=== PATIENT | male | born 1975 | race Caucasian/White ===

== ENCOUNTER → 2017-10-05 14:40 | Outpatient (CLI) | payer SELFPAY | PROVIDERS: PCP Nurse Practitioner Family; Visit Provider Nurse Practitioner Family | DX: Z02.4 Encounter for examination for driving license (principal) ==

== ENCOUNTER → 2017-12-20 15:31 | Outpatient (CLI) | payer BC, SELFPAY ==
--- NOTE | 2017-12-20 15:40 | XR_ITS ---
EXAM: XR thoracic spine 3V HISTORY: ITS.REASON: CAREN THORACIC BACK PAIN COMPARISON: None FINDINGS: Normal alignment. No fracture or dislocation. No lytic or blastic change. There is minimal endplate osteophytes noted at T11 and T12. IMPRESSION: Minimal lower thoracic spondylosis, no acute finding
== END ==
PROVIDERS: PCP Family Medicine; Visit Provider Family Medicine
DX: M54.6 Pain in thoracic spine (principal)
CPT/HCPCS: 72072

== ENCOUNTER → 2020-04-12 17:50 | Outpatient (CLI) | payer BC, SELFPAY ==
[2020-04-14 15:15] LABS: Covid-19 Nasal PCR Sendout Lex NOT DETECTED
== END ==
PROVIDERS: PCP Family Medicine; Visit Provider Family Medicine
DX: Z03.818 Encounter for observation for suspected exposure to other biological agents ruled out (principal)
CPT/HCPCS: U0004

== ENCOUNTER → 2020-04-21 10:52 | Outpatient (CLI) | payer BC, SELFPAY ==
[2020-04-22 13:38] LABS: Covid-19 Nasal PCR Sendout Lex NOT DETECTED
== END ==
PROVIDERS: PCP Family Medicine; Visit Provider Family Medicine
DX: Z03.818 Encounter for observation for suspected exposure to other biological agents ruled out (principal)
CPT/HCPCS: U0004

== ENCOUNTER → 2020-05-04 11:46 | Outpatient (CLI) | payer BC, SELFPAY | PROVIDERS: PCP Family Medicine; Visit Provider Family Medicine | DX: Z03.818 Encounter for observation for suspected exposure to other biological agents ruled out (principal) | CPT/HCPCS: U0003 ==

== ENCOUNTER → 2020-06-03 17:41 | Outpatient (CLI) | payer BC, SELFPAY ==
[2020-06-03 18:56] LABS: Uric Acid 5.2 mg/dl (3.5-8.5)
== END ==
PROVIDERS: Visit Provider Physician Assistant
DX: M10.9 Gout, unspecified (principal)
CPT/HCPCS: 36415; 84550

== ENCOUNTER → 2020-06-14 09:12 | Outpatient (CLI) | payer BC, SELFPAY ==
--- NOTE | 2020-06-14 09:19 | XR_ITS ---
PROCEDURE: XR ELBOW LT MIN 3V CLINICAL INDICATION: LT elbow pain COMPARISON: No exams were available for comparison FINDINGS: No fracture or dislocation. No lytic or blastic change. There is normal mineralization. The joint spaces are well-preserved. No significant degenerative/arthritic changes. No erosive changes evident. Other findings:There is prominent soft tissue swelling along the olecranon region of elbow IMPRESSION: Olecranon bursitis otherwise negative Dictated by: Cahno Penn MD 06/14/2020 13:20 Chano Penn MD in [place] 06/14/2020 13:20
[2020-06-14 11:53] VITALS: BMI 22.8
[2020-06-14 11:54] LABS: Color,Urine Yellow (Yellow)
[2020-06-14 11:55] LABS: Apearance,Urine Clear (Clear); Bilirubin,Urine Negative (Negative); Blood, Urine Negative (Negative); Glucose,Urine (UA) Negative (Negative); Ketones,Urine Negative (Negative); PH,Urine 7.5 (5.0-8.5); Protein,Urine Negative (Negative); UTC Leukocyte Esterase,Urine Negative (Negative); UTC Nitrate,Urine Negative (Negative); Urobilinogen,Urine 0.2 EU/dl (0.2)
== END | disposition home or self-care (01) ==
PROVIDERS: Nurse Practitioner Family; PCP Family Medicine; Visit Provider Orthopaedic Surgery
DX: M25.522 Pain in left elbow (principal)
CPT/HCPCS: 73080; 81003

== ENCOUNTER → 2020-06-21 07:16 | Outpatient (CLI) | payer BC, SELFPAY ==
[2020-06-21 07:19] LABS: MANUAL DIFFERENTIAL MANUAL DIFFERENTIAL (MANUAL DIFF)
[2020-06-21 09:29] LABS: Chloride 103 mmol/L (98-107); Potassium 4.7 mmoL/L (3.5-5.1); Sodium 140 mmol/L (136-145)
[2020-06-21 09:32] LABS: Alanine Aminotransferase 14 U/L (12-78); Albumin Level 4.4 g/dl (3.5-5.0); Albumin/Globulin Ratio 1.7 (1.1-1.8); Alkaline Phosphatase 88 U/L (38-126); Anion Gap 11.7 mEq/L (5-15); Aspartate Amino Transferase 20 U/L (17-59); Bilirubin,Total 0.5 mg/dl (0.2-1.3); Blood Urea Nitrogen 17 mg/dl (9-20); Carbon Dioxide 30 mmol/L (22.0-30.0); Estimated Glomerular Filt Rate 66 ml/min (>60); GFR (African American) 80 ML/MIN (>60); Globulin 2.6 g/dL (1.3-3.2)
[2020-06-21 09:33] LABS: Calcium 9.9 mg/dl (8.4-10.2); Glucose 101 mg/dl (74-100)
[2020-06-21 10:32] LABS: Coronavirus 19 IgG Antibody Negative (Negative); Coronavirus 19 IgM Antibody Negative (Negative)
[2020-06-21 11:09] LABS: Basophils # 0.1 K/mm3 (0-0.2); Basophils % 0.9 % (0.1-2.0); Eosinophils # 0.3 K/mm3 (0.0-0.4); Eosinophils % 3.6 % (0.1-12.0); Hematocrit 51.3 % (42.0-52.0); Hemoglobin 17.3 g/dL (14.1-18.0); Lymphocytes # 1.5 K/mm3 (0.7-4.5); Lymphocytes % 19.3 % (10-50); Mean Corpuscular HGB Conc 33.8 g/dL (31.8-35.4); Mean Corpuscular Hemoglobin 31.9 pg (27.0-31.2); Mean Corpuscular Volume 94.5 fl (80-94); Mean Platelet Volume 9.3 fl (7.4-10.4); Monocytes # 0.5 K/mm3 (0.1-1.0); Monocytes % 6.8 % (1.7-9.3); Neutrophils # 5.4 K/mm3 (1.8-7.8); Neutrophils % 69.3 % (37.0-80.0); Platelet Count 179 K/mm3 (142-424); Red Blood Count 5.43 M/mm3 (4.60-6.20); Red Cell Distribution Width 12.5 % (11.5-17.5); White Blood Count 7.7 K/mm3 (4.8-10.8)
[2020-06-21 11:55] LABS: Eosinophils % 4 % (0-3); Lymphocytes % 12 % (10-50); Monocytes % 7 % (2-9); Neutrophils % 77 % (42-76); Total Cells Counted 100
[2020-06-21 11:56] LABS: Platelet Estimate Normal; RBC Morphology Normal
== END ==
PROVIDERS: Visit Provider Orthopaedic Surgery
DX: Z01.89 Encounter for other specified special examinations (principal); M70.22 Olecranon bursitis, left elbow
CPT/HCPCS: 36415; 80053; 85007; 85014; 85018; 85048; 85049; 86328

== ENCOUNTER 2020-06-22 07:17 | Day surgery (SDC) | payer BC, SELFPAY ==
[2020-06-18 13:05] VITALS: BMI 25.0
[2020-06-22] VITALS (11 sets, daily range): BP systolic 110–124; BP diastolic 59–84; PULSE 55–87; RESP 16–20; TEMP 36.2–36.8; O2SAT 97–100
--- NOTE | 2020-06-22 09:56 | HMH.ANESCL ---
[facility] Anesthesia Checklist - Patient Identification Patient Identification: Arm Band, Verbal (Name & ) - Structural Data Admitted From: Home Planned Operative Procedure/s: Left Olecranon bursa excision Consent for Planned Operative Procedure(s) Verified: Yes Verified Documents: Surgical Consent, History and Physical - NPO Status Verified Time NPO: 00:00 - Chart Verification Results Verified: CBC, BMP, UA - Additional verifications Anesthesia Reactions: No Hx Blood Transfusions: No Blood Transfusion Reaction: No - Airway Assessment C-Spine Mobility Assessed: Yes (MP 2, TMD 3, full neck ROM) TMJ Mobility Assessed: Yes Dentition: Poor Dentition (Missing teeth) - Neurological Assessment Level of Consciousness: Awake, Alert, Appropriate, Follows Commands Hx Seizures: No Numbness or tingling in extremities: No - Anesthesia Plan Anesthesia Risk discussed: Yes Anesthesia Plan: Verified ASA Class: II Anesthesia Type: General (LMA) [facility] History I have reviewed the patient's past medical history: Yes Medical History: Denies:: Cancer, Diabetes Mellitus Type 1, Diabetes Mellitus Type 2, MRSA, Seizures *Have you ever received a pneumonia vaccine?: No *Have you received a flu vaccine this season?: No Other Medical History: Denies: Blood Transfusion Reaction Comment:: Gout Anesthesia experience/problems:: none Other Surgeries: Yes: Appendectomy Amputation: No Fractures: No - *Social History Last grade of school completed: Some college Smoking Status: Current every day smoker Tobacco Type: cigarettes # Packs/Day (cigarettes): 1 Alcohol Intake: never Substance Use Type: denies use *Occupational Status:: employed *Travel in the last 8 weeks: None Family Hx:: Other (NA)
--- NOTE | 2020-06-22 10:10 | P.PN_ITS ---
[facility] Anesthesia Record Part I Intake, IV Amount: 600 Estimated blood loss (mL): 5 Urine output (mL): 0 (NM) Blood Products used (#): none Blood Pressure: 115/78 SaO2: 97 Pulse Rate: 71 Respiratory Rate: 16 Temperature: 97.2 F Patient is:: Awake, Drowsy, Stable Stable to PACU at:: 10:18
--- NOTE | 2020-06-22 10:25 | HMH.OPNOTE ---
Date of procedure: 06/22/20 Pre-op Diagnosis:: chronic L olecranon bursitis Post-op Diagnosis:: chronic L olecranon bursitis Procedure performed:: excision of L olecranon bursa Surgeon:: Edwige Westbrook MD Boring And Filling Machine Operator(s):: Tram Mary CENTRAL OFFICE TECHNICIAN:: Jaron Tristan Anesthesia: GETA, local Estimated blood loss (mL): 5 Clinical Note:: 44-year-old [id number] male with complaints of left elbow swelling and pain. He noticed a swelling over the posterior aspect of the left elbow in January 2020. He denies any previous trauma to this region and cannot recall either bumping the elbow or having increased friction over this area. There was no erythema or warmth at that time. It has subsequently been aspirated and injected with steroids 3 times by his primary care provider. At one point they placed him on allopurinol under suspicion of gout. On 06/03/2020 his uric acid level was found to be 5.2, which is within normal limits. He denies drainage of any purulent material from this region. It is starting to become tender and troublesome, as he frequently bumps it while at work. He would like to have it removed if possible. He has tried icing the elbow as well as wearing a compressive sleeve. He takes meloxicam 15 mg p.o. daily. He denies any fevers or chills, no respiratory symptoms or recent exposure to sick individuals. I do not believe that the bursitis appears to be septic at this time, but cannot rule out indolent infection possibly precipitated by multiple aspirations and injections with steroid. I typically recommend ice, compression and NSAIDs for this condition and do not recommend routine aspiration or injection with steroids. He has tried all of the above and has had recurrent discomfort and swelling in this region for nearly 5 months. It is troublesome to him and he would like to have it excised. I discussed risks of surgical excision of left olecranon bursitis with the patient, including the risk of bleeding, infection including septic arthritis of the elbow, wound healing complications, persistent swelling and/or discomfort in this region, neurovascular damage, and need for further surgery in the future. The patient vocalized understanding and provided informed consent for the procedure. Operative findings:: L olecranon bursitis; thickened bursal tissue filled with ~5cc blood-tinged fluid, no purulence seen Operative note:: The patient was identified in preoperative holding and the left arm signed by myself. Consent was verified with the patient and all questions answered. He was then seen by anesthesia and the decision made to perform general anesthesia without a block. The patient was then taken to the OR and transferred to the operative table. 2 g Ancef was infused intravenously and general anesthesia induced. After the patient was asleep a non-sterile tourniquet was placed on the upper left arm and the remainder of the arm was prepped and draped in the usual sterile fashion. Timeout was performed, identifying the correct patient, correct procedure, and correct site. The procedure was begun by placing the patient's arm over his chest, with the arm adducted and elbow flexed, exposing the posterior aspect of the elbow. A marking pen was used to draw an incision over the posterior aspect of the elbow, longitudinal and centered over the central aspect of the olecranon bursa; it was approximately 4cm long. The left arm was exsanguinated with Esmarch and the tourniquet inflated to 250 mmHg. Using a 15 blade, the skin was incised along the drawn line of incision, incising the skin only. Tenotomy scissors were used to bluntly spread subcutaneous tissue overlying the olecranon bursa. The scissors punctured the bursal sac, releasing ~5cc of blood-tinged fluid; no purulence or sign of infection noted. The bursal tissue was thickened but not obviously clinically infected. Using blunt dissection, the bursa was dissected away from the surrounding tissue and excised
--- NOTE | 2020-06-22 19:29 | HMH.ANESII ---
[facility] Anesthesia Record Part II Discharge Time: 10:38 Destination: Surgical Day Care (OP Surgery) PACU nurse assessment reviewed?: Yes Patient Condition:: Good Anesthesia Complications:: None Swallowing reflex intact?: Yes Cyanosis?: No Blood Pressure: 124/75 Pulse Rate: 57 Temperature: 97.2 F Mental Status: Alert & Oriented Pain level:: 0 Nausea and/or vomitting:: None Intake, IV Amount: 0 (Normovolemic)
== END 2020-06-22 11:25 | disposition home or self-care (01) ==
PROVIDERS: PCP Family Medicine; Visit Provider Orthopaedic Surgery
PROC: (CPT 24105; principal; 2020-06-22 09:00)
DX: M70.22 Olecranon bursitis, left elbow (principal)
CPT/HCPCS: 24105; 87070; 87205; 96374; J2405

== ENCOUNTER → 2020-12-25 09:00 | Outpatient (CLI) | payer BC, SELFPAY ==
[2020-12-25 12:00] LABS: Erythrocyte Sedimentation Rate 9 mm/hr (0-15)
== END ==
PROVIDERS: Visit Provider Family Medicine
DX: M25.50 Pain in unspecified joint (principal)
CPT/HCPCS: 36415; 85651

== ENCOUNTER → 2021-03-04 09:21 | Outpatient (CLI) | payer BC, SELFPAY ==
--- NOTE | 2021-03-04 09:24 | XR_ITS ---
PROCEDURE: XR WRIST LT MIN 3V CLINICAL INDICATION: BL Carpal tunnel syndrome COMPARISON: No exams were available for comparison FINDINGS: No fracture or dislocation. No lytic or blastic change. There is normal mineralization. The joint spaces are well-preserved. No significant degenerative/arthritic changes. No erosive changes evident. Other findings:None. IMPRESSION: No acute findings. Dictated by: Chano Penn MD 03/04/2021 11:04 Chano Penn MD in [place] 03/04/2021 11:04
--- NOTE | 2021-03-04 09:24 | XR_ITS ---
PROCEDURE: XR WRIST RT MIN 3V CLINICAL INDICATION: BL carpal tunnel syndrome COMPARISON: No exams were available for comparison FINDINGS: No fracture or dislocation. No lytic or blastic change. There is normal mineralization. The joint spaces are well-preserved. No significant degenerative/arthritic changes. No erosive changes evident. Other findings:None. IMPRESSION: No acute findings. Dictated by: Chano Penn MD 03/04/2021 11:04 Chano Penn MD in [place] 03/04/2021 11:04
== END ==
LOC: RAD 09:22
PROVIDERS: PCP Family Medicine; Visit Provider Orthopaedic Surgery
DX: G56.00 Carpal tunnel syndrome, unspecified upper limb (principal)
CPT/HCPCS: 73110

== ENCOUNTER 2021-03-04 11:51 | Outpatient (RCR) | payer BC, SELFPAY | END 2021-03-04 12:20 | disposition home or self-care (01) | LOC: OT 11:51 | PROVIDERS: Visit Provider Orthopaedic Surgery | DX: G56.03 Carpal tunnel syndrome, bilateral upper limbs (principal) | CPT/HCPCS: 97763 ==

== ENCOUNTER → 2021-03-22 11:01 | Outpatient (CLI) | payer BC, SELFPAY ==
[2021-03-22 11:24] LABS: Basophils # 0.1 K/mm3 (0-0.2); Basophils % 0.5 % (0.1-2.0); Eosinophils # 0.2 K/mm3 (0.0-0.4); Hematocrit 44.7 % (42.0-52.0); Hemoglobin 15.8 g/dL (14.1-18.0); Lymphocytes # 1.9 K/mm3 (0.7-4.5); Lymphocytes % 18.7 % (10-50); Mean Corpuscular HGB Conc 35.2 g/dL (31.8-35.4); Mean Corpuscular Hemoglobin 31.6 pg (27.0-31.2); Mean Corpuscular Volume 89.6 fl (80-94); Mean Platelet Volume 8.9 fl (7.4-10.4); Monocytes # 0.6 K/mm3 (0.1-1.0); Monocytes % 5.9 % (1.7-9.3); Neutrophils # 7.3 K/mm3 (1.8-7.8); Neutrophils % 72.9 % (37.0-80.0); Platelet Count 202 K/mm3 (142-424); Red Blood Count 4.99 M/mm3 (4.60-6.20); Red Cell Distribution Width 13.6 % (11.5-17.5)
[2021-03-22 11:39] LABS: Chloride 106 mmol/L (98-107)
[2021-03-22 11:40] LABS: Potassium 4.1 mmoL/L (3.5-5.1); Sodium 140 mmol/L (136-145)
[2021-03-22 11:42] LABS: Alanine Aminotransferase 15 U/L (12-78); Alkaline Phosphatase 119 U/L (38-126); Anion Gap 12.1 mEq/L (5-15); Aspartate Amino Transferase 28 U/L (17-59); Bilirubin,Total 0.9 mg/dl (0.2-1.3); Blood Urea Nitrogen 18 mg/dl (9-20); Carbon Dioxide 26 mmol/L (22.0-30.0); Estimated Glomerular Filt Rate 73 ml/min (>60); GFR (African American) 88 ML/MIN (>60)
[2021-03-22 11:43] LABS: Albumin Level 4.6 g/dl (3.5-5.0); Albumin/Globulin Ratio 1.6 (1.1-1.8); Calcium 9.3 mg/dl (8.4-10.2); Globulin 2.8 g/dL (1.3-3.2); Glucose 96 mg/dl (74-100); Total Protein,Serum 7.4 g/dl (6.3-8.2)
== END ==
PROVIDERS: Visit Provider Orthopaedic Surgery
DX: Z11.52 Encounter for screening for COVID-19; G56.02 Carpal tunnel syndrome, left upper limb; Z72.0 Tobacco use; Z87.39 Personal history of other diseases of the musculoskeletal system and connective tissue; Z01.812 Encounter for preprocedural laboratory examination
CPT/HCPCS: 80053; 85025; U0003

== ENCOUNTER 2021-03-24 10:08 | Day surgery (SDC) | payer BC, SELFPAY ==
[2021-03-17 14:06] VITALS: BMI 25.0
[2021-03-24] VITALS (9 sets, daily range): BP systolic 103–127; BP diastolic 62–83; PULSE 60–72; RESP 12–18; TEMP 36.3–42.7; O2SAT 97–100
--- NOTE | 2021-03-24 11:12 | HMH.ANESCL ---
[facility] Anesthesia Checklist - Patient Identification Patient Identification: Arm Band - Structural Data Admitted From: Home Planned Operative Procedure/s: Left Carpal Tunnel Release Consent for Planned Operative Procedure(s) Verified: Yes Verified Documents: Surgical Consent, History and Physical - NPO Status Verified Time NPO: 00:00 - Additional verifications Anesthesia Reactions: No Hx Blood Transfusions: No Blood Transfusion Reaction: No - Airway Assessment C-Spine Mobility Assessed: Yes (mp2) TMJ Mobility Assessed: Yes Dentition: Good Dentition - Neurological Assessment Level of Consciousness: Awake, Alert - Anesthesia Plan Anesthesia Risk discussed: Yes Anesthesia Plan: Verified ASA Class: II Anesthesia Type: General [facility] History I have reviewed the patient's past medical history: Yes Medical History: Denies:: Cancer, Diabetes Mellitus Type 1, Diabetes Mellitus Type 2, Internal Pacemaker, MRSA, Seizures *Have you ever received a pneumonia vaccine?: No *Have you received a flu vaccine this season?: No Other Medical History: Denies: Blood Transfusion Reaction Anesthesia experience/problems:: nac Other Surgeries: Yes: Appendectomy. No: Pacemaker Amputation: No Fractures: No - *Social History Last grade of school completed: GED Smoking Status: Current every day smoker Tobacco Type: cigarettes # Packs/Day (cigarettes): 1 Alcohol Intake: never Substance Use Type: denies use *Occupational Status:: employed Housing: house Household Members: family *Travel in the last 8 weeks: None Family Hx:: Other
--- NOTE | 2021-03-24 13:08 | P.PN_ITS ---
[facility] Anesthesia Record Part I Intake, IV Amount: 800 Estimated blood loss (mL): 1 Urine output (mL): 0 Blood Pressure: 127/69 SaO2: 97 Pulse Rate: 66 Respiratory Rate: 12 Temperature: 97.7 F Patient is:: Awake, Drowsy Stable to PACU at:: 13:05
--- NOTE | 2021-03-24 14:02 | HMH.OPNOTE ---
Date of procedure: 03/24/21 Pre-op Diagnosis:: Carpal tunnel syndrome, left Post-op Diagnosis:: Same Procedure performed:: Open carpal tunnel release, left Surgeon:: Oj Rizvi MD CHRISTMAS TREE CONTRACTOR:: Elliott Campos Anesthesia: LMA Estimated blood loss (mL): 2 Clinical Note:: Patient is a 45-year-old male with bilateral carpal tunnel syndrome with chronic symptoms. EMG/NCV studies confirmed carpal tunnel syndrome on both sides and his symptoms are worse on the left side than the right. Patient is having significant and disabling symptoms and has failed to respond adequately to conservative management.. Therefore, carpal tunnel release surgery is necessary to relieve symptoms, preserve the remaining fibers of the median nerve, improve function and decrease the pain, paresthesias and weakness and to prevent permanent nerve damage. Please refer to my office note for full details. Operative findings:: The intraoperative findings showed the median nerve to be very tightly compressed and hyperemic. The flexor retinaculum was noted to be thick and tight. There was mild synovitis in the carpal tunnel. There was no evidence of any space-occupying lesions within the carpal tunnel. Operative note:: On the day of the surgery the patient was met in the preoperative area. Patient was positively identified and the operative site was marked and initialed by me. A physical examination was performed and the chart was updated. I again discussed the procedure, risks and benefits and alternatives with the patient. The complications discussed include but are not limited to- bleeding, injury to nerves, blood vessels and tendons, infection, wound dehiscence, incomplete relief/continued pain, persistent numbness, palmar hypersensitivity, pillar pain, DVT/PE, complex regional pain syndrome(CRPS), worsening of nerve damage, failure of the condition to improve, incomplete return of function, bowstringing of tendons, weakness of cae engineer strength, recurrence, failure of the surgery to accomplish the desired goals, decreased use of the hand, loss of use of the arm, loss of the hand or arm, loss of life. Likely need for further surgery in the future has been discussed. I've indicated to the patient where the proposed incision would be made and also discussed the possibility of extending the incision if needed to accomplish an effective release. We have discussed how the goal of surgery is to protect the fibers which have remained healthy and hopefully reverse the symptoms of the fibers which are compromised but still recoverable. We have explained that, fibers that are permanently damaged will not recover. Patient asked appropriate questions and all have been answered by me. Patient wished to proceed with the surgery. Patient understood the risks, agreed to proceed with surgery, and no guarantees or assurances were given or implied. The patient was brought to the operating room and placed supine on the operating table. The left upper extremity was placed over a side table. All the bony prominences were well-padded. The patient had general anesthesia administered by the metal furniture polisher. A well-padded tourniquet cuff was placed over the upper arm. The left upper extremity was prepped and draped in the usual sterile fashion. A preprocedure timeout was performed as per hospital policy. Administration of prophylactic antibiotics was confirmed with the metal furniture polisher. The skin incision was marked using the Collier's landmarks, just ulnar to the thenar crease. The limb was exsanguinated with the Esmarch bandage and tourniquet was inflated to 250 mmHg. Please see nursing records for the total tourniquet time. Collier's landmarks were utilized and a skin incision was made parallel and just ulnar to the thenar crease with a 15 blade. Blunt tissue dissection was carried through the subcutaneous tissue down to the palmar fascia. The palmar fascia was incised with the knife to reveal the transverse carpal ligament.
[2021-03-25 12:31] VITALS: BP 109/66; PULSE 66; TEMP 36.5
--- NOTE | 2021-03-25 12:31 | P.PN_ITS ---
[facility] Anesthesia Record Part II Discharge Time: 13:25 Destination: Surgical Day Care (OP Surgery) PACU nurse assessment reviewed?: Yes Patient Condition:: Good Anesthesia Complications:: None Swallowing reflex intact?: Yes Cyanosis?: No Blood Pressure: 109/66 Pulse Rate: 66 Temperature: 97.7 F Mental Status: Alert & Oriented Pain level:: 0 Nausea and/or vomitting:: None Intake, IV Amount: 0
== END 2021-03-24 13:55 | disposition home or self-care (01) ==
PROVIDERS: PCP Family Medicine; Visit Provider Orthopaedic Surgery
PROC: (CPT 64721; principal; 2021-03-24 11:45)
DX: G56.02 Carpal tunnel syndrome, left upper limb (principal)
CPT/HCPCS: 64721; 96374; J0131; J2405

== ENCOUNTER → 2021-05-25 14:14 | Outpatient (CLI) | payer BC, SELFPAY ==
--- NOTE | 2021-05-25 14:16 | XR_ITS ---
PROCEDURE: XR ELBOW RT MIN 3V CLINICAL INDICATION: RT elbow pain COMPARISON: CR XR ELBOW LT MIN 3V from 06/14/2020 FINDINGS: No fracture or dislocation. No lytic or blastic change. There is normal mineralization. The joint spaces are well-preserved. No significant degenerative/arthritic changes. No erosive changes evident. Other findings:Small enthesophyte is present at the olecranon posteriorly with minimal soft tissue swelling at the olecranon area. No displaced fat pad. IMPRESSION: Minimal soft tissue swelling at the olecranon otherwise negative Dictated by: Chano Penn MD 05/25/2021 15:32 Chano Penn MD in [place] 05/25/2021 15:32
== END ==
PROVIDERS: PCP Family Medicine; Visit Provider Orthopaedic Surgery
DX: M25.521 Pain in right elbow (principal)
CPT/HCPCS: 73080

== ENCOUNTER → 2022-08-10 14:13 | Outpatient (CLI) | payer OTHER, SELFPAY ==
--- NOTE | 2022-08-10 14:19 | XR_ITS ---
FINAL REPORT CLINICAL HISTORY: wrist pain COMPARISON: February 2021 FINDINGS: 3 views of the left wrist were obtained. There is no acute fracture or dislocation. The joint spaces are intact. There is no soft tissue abnormality. IMPRESSION: No acute abnormality. Reviewed, Interpreted and Dictated by Omid Sellers MD Transcribed by Nino Omer Authenticated and [facility]
--- NOTE | 2022-08-10 14:19 | XR_ITS ---
FINAL REPORT CLINICAL HISTORY: wrist pain COMPARISON: February 2021 FINDINGS: 3 views of the right wrist were obtained. There is no acute fracture or dislocation. There are minimal hypertrophic changes at the basilar joint. There is no soft tissue abnormality. IMPRESSION: No acute abnormality. Reviewed, Interpreted and Dictated by Omid Sellers MD Transcribed by Nino Omer Authenticated and . [facility]
== END ==
PROVIDERS: PCP Family Medicine; Visit Provider Orthopaedic Surgery
DX: M25.531 Pain in right wrist (principal); M25.532 Pain in left wrist
CPT/HCPCS: 73110

== ENCOUNTER → 2022-11-08 15:57 | Outpatient (CLI) | payer OTHER, SELFPAY ==
[2022-11-08 16:01] LABS: Microscopic, Urine URINE MICROSCOPIC (MICROSCOPIC)
[2022-11-08 17:28] LABS: Basophils # 0.1 K/mm3 (0-0.2); Basophils % 0.9 % (0.1-2.0); Eosinophils # 0.2 K/mm3 (0.0-0.4); Hematocrit 45.4 % (42.0-52.0); Lymphocytes # 2.1 K/mm3 (0.7-4.5); Lymphocytes % 25.5 % (10-50); Mean Corpuscular HGB Conc 33.1 g/dL (31.8-35.4); Mean Corpuscular Hemoglobin 30.4 pg (27.0-31.2); Mean Corpuscular Volume 91.9 fl (80-94); Mean Platelet Volume 8.2 fl (7.4-10.4); Monocytes # 0.4 K/mm3 (0.1-1.0); Monocytes % 5.2 % (1.7-9.3); Neutrophils # 5.3 K/mm3 (1.8-7.8); Neutrophils % 65.4 % (37.0-80.0); Platelet Count 247 K/mm3 (142-424); Red Blood Count 4.94 M/mm3 (4.60-6.20); Red Cell Distribution Width 12.8 % (11.5-17.5); White Blood Count 8.1 K/mm3 (4.8-10.8)
[2022-11-08 18:09] LABS: Chloride 108 mmol/L (98-107); Potassium 3.9 mmoL/L (3.5-5.1); Sodium 142 mmol/L (136-145)
[2022-11-08 18:12] LABS: Alanine Aminotransferase 27 U/L (12-78); Albumin Level 4.5 g/dl (3.5-5.0); Albumin/Globulin Ratio 1.9 (1.1-1.8); Alkaline Phosphatase 99 U/L (38-126); Anion Gap 11.9 mEq/L (5-15); Aspartate Amino Transferase 29 U/L (17-59); Bilirubin,Total 0.4 mg/dl (0.2-1.3); Blood Urea Nitrogen 14 mg/dl (9-20); Carbon Dioxide 26 mmol/L (22.0-30.0); Estimated Glomerular Filt Rate 81 ml/min (>60); GFR (African American) 98 ML/MIN (>60); Globulin 2.4 g/dL (1.3-3.2); Total Protein,Serum 6.9 g/dl (6.3-8.2)
[2022-11-08 18:13] LABS: Calcium 9.1 mg/dl (8.4-10.2); Glucose 87 mg/dl (74-100)
[2022-11-08 18:19] LABS: Appearance,Urine CLEAR (Clear); Bilirubin,Urine Negative (Negative); Blood, Urine Negative (Negative); Color,Urine YELLOW (Yellow); Glucose,Urine (UA) Negative (Negative); Ketones,Urine Negative (Negative); Leukocyte Esterase,Urine Negative (Negative); Nitrate,Urine Negative (Negative); Protein,Urine Negative (Negative); Urobilinogen,Urine 0.2 EU/dl (0.2)
[2022-11-08 18:28] LABS: WBC,Urine Occasional #/hpf (0-3)
== END ==
PROVIDERS: PCP Family Medicine; Visit Provider Orthopaedic Surgery
DX: Z01.818 Encounter for other preprocedural examination (principal)
CPT/HCPCS: 36415; 80053; 81001; 85025

== ENCOUNTER 2022-11-15 06:36 | Day surgery (SDC) | payer OTHER, SELFPAY ==
[2022-11-13 10:09] VITALS: BMI 25.0
[2022-11-15] VITALS (7 sets, daily range): BP systolic 96–144; BP diastolic 51–94; PULSE 60–86; RESP 16–18; TEMP 36.1–36.8; O2SAT 97–98
--- NOTE | 2022-11-15 07:24 | P.PN_ITS ---
[facility] Disclaimer: The information contained in this section may have been updated after the patient was seen, as this information can be updated by other users. 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 current occupational exposures/hazards: No caffeine: Yes [facility] Anesthesia Checklist Patient Identification Patient Identification: Arm Band Structural Data Admitted From: Home Planned Operative Procedure/s: Right Carpal Tunnel Release Consent for Planned Operative Procedure(s) Verified: Yes Verified Documents: Surgical Consent and History and Physical NPO Status Verified Time NPO: 00:00 Additional verifications Anesthesia Reactions: No Hx Blood Transfusions: No Blood Transfusion Reaction: No Airway Assessment C-Spine Mobility Assessed: Yes TMJ Mobility Assessed: Yes Dentition: Good Dentition Neurological Assessment Level of Consciousness: Awake and Alert Anesthesia Plan Anesthesia Risk discussed: Yes Anesthesia Plan: Verified ASA Class: I Anesthesia Type: MAC
--- NOTE | 2022-11-15 09:16 | EXP.OP.NOTE ---
Date of procedure: 11/15/22 Pre-op Diagnosis:: Right carpal tunnel syndrome Post-op Diagnosis:: Same Procedure performed:: Right endoscopic carpal tunnel release Surgeon:: Yossi Wiley DO SERVICES ENGINEER:: Ambrocio Batista Anesthesia: MAC and local Estimated blood loss (mL): 0 Operative findings:: See dictation Operative note:: Patient then 5 preoperatively right wrist marked with a yes my initials. Taken the operating room placed supine on the operating bed with a hand table. Right upper extremity was prepped and draped normal sterile fashion. Once prepped and draped final operative timeout performed to identify proper patient procedure and extremity. Everyone involved the case agreed. No counter indications to beginning. Did receive preoperative antibiotics. Patient was given sedation and local anesthesia was infiltrated to planned incision site over the volar wrist. Once adequate anesthesia confirmed pneumatic tourniquet was inflated to 250 mmHg after exsanguinating the extremity with Esmarch. Skin knife was used to incise the skin blunt dissection was taken down to identify the most proximal aspect of transverse carpal ligament. Retractors placed followed by the dilator of the amado [employer] endoscopic carpal tunnel system. This was followed with a right sided sled into the carpal tunnel. Camera was then placed in the carpal tunnel. Transverse carpal ligament clearly seen superiorly. Probe was used to confirm the most distal aspect of transverse carpal ligament. Rasp was used to remove soft tissue. And then the hook knife was used to completely open transverse carpal ligament complete release was confirmed with direct visualization. Copious irrigation wound performed skin closed with nylon stitches. Additional local anesthesia infiltrated to the skin site. Sterile hand dressing placed. Patient waken anesthesia taken recovery in stable condition. Condition: stable Disposition: PACU Complications:: None apparent
== END 2022-11-15 10:02 | disposition home or self-care (01) ==
PROVIDERS: PCP Family Medicine; Visit Provider Orthopaedic Surgery
PROC: (CPT 64721; principal; 2022-11-15 08:15)
DX: G56.01 Carpal tunnel syndrome, right upper limb (principal)
CPT/HCPCS: 64721; 96374